=== PATIENT | male | born 1980 | race Caucasian/White ===

== ENCOUNTER 2017-08-04 06:20 | Emergency (ER) | payer SELFPAY ==
[~2017-08-04] VITALS: Ht 177.8 cm; Wt 98.6 kg
[~2017-08-04 06:20] MED LIST: ASPIRIN325 MG PO; ATENOLOL100 MG OR; BENAZEPRIL40 M1 OR; CLONIDINE0.1 MG PO; CLONIDINE0.3 MG OR; LORTAB5 OR; NO HOME MEDS
[2017-08-04] MEDS ORDERED: TRAMADOL HYDROC50 MG PO (07:29)
[2017-08-04] MEDS ORDERED: MOTRIN800 MG PO (07:29)
[2017-08-04 07:53] VITALS: BP 132/99
== END 2017-08-04 08:00 | disposition home or self-care (01) | DRG 948 ==
LOC: ED 06:20
DX: R60.0 Localized edema (principal); M25.571 Pain in right ankle and joints of right foot; Z87.312 Personal history of (healed) stress fracture

== ENCOUNTER 2018-09-17 18:17 | Emergency (ER) | payer SELFPAY ==
[~2018-09-17] VITALS: Ht 177.8 cm; Wt 101.0 kg
[~2018-09-17 18:17] MED LIST changes: +MOTRIN800 MG PO; +TRAMADOL HYDROC50 MG PO
[2018-09-17 19:28] LABS: HEMATOCRIT 52.7 % (39.0-50.0); HEMOGLOBIN 17.4 g/dl (14.0-18.0); IMMATURE GRANULOCYTES 0.2 % (0.0-5.0); MEAN CORPUSCULAR HGB 29.4 pG CALC (26.0-32.0); NEUT# 5.41 thou/uL (1.82-7.42); RED BLOOD COUNT 5.92 mill/uL (4.70-6.10); RED CELL DISTRI WIDTH 13.6 % (11.5-15.5)
[2018-09-17 19:44] LABS: ALBUMIN 4.4 g/dL (3.2-5.0); ALKALINE PHOSPHATASE 60 u/l (38-126); ANION GAP 15 (6-22 (CALC)); BILIRUBIN, TOTAL 0.6 mg/dL (0.0-1.4); BUN 20 mg/dL (9-20); BUN/CREATININE RATIO 19 (12-20 (CALC)); CARBON DIOXIDE 25 mmol/l (22-30); CHLORIDE 105 mmol/l (95-108); GFR > 60 ML/MIN (>=60 (CALC)); GFR FOR AFR.AMER. > 60 ML/MIN (>=60 (CALC)); POTASSIUM 4.2 mmol/l (3.5-5.1); SGOT/AST 19 u/l (17-59); SODIUM 141 mmol/l (137-146)
[2018-09-17 19:56] LABS: MYOGLOBIN 37 ng/mL (0 - 121)
[2018-09-17 20:08] LABS: URINE BILIRUBIN - DIPSTICK NEGATIVE (NEGATIVE); URINE BLOOD DIPSTICK NEGATIVE (NEGATIVE); URINE COLOR YELLOW; URINE GLUCOSE - DIPSTICK NEGATIVE (NEGATIVE); URINE KETONE NEGATIVE (NEGATIVE); URINE LEUK ESTERASE NEGATIVE (NEGATIVE); URINE NITRITE - DIPSTICK NEGATIVE (Negative); URINE PH 6.5 (4.5-8.0); URINE PROTEIN - DIPSTICK NEGATIVE (NEG-TRACE); URINE UROBILINOGEN - DIPSTICK 0.2 E.U./dL (0.2)
[2018-09-17 20:11] LABS: BARBITURATES NEGATIVE (NEGATIVE); COCAINE NEGATIVE (NEGATIVE); METHADONE NEGATIVE (NEGATIVE); TETRAHYDROCANNABIONOL NEGATIVE (NEGATIVE); TRICYLIC ANTIDEPRESSANTS NEGATIVE (NEGATIVE)
[2018-09-17 20:12] LABS: OXCYCODONE NEGATIVE (NEGATIVE)
[2018-09-17] MEDS ORDERED: ANTIVERT PO (20:34)
[2018-09-17 21:30] VITALS: BP 135/86
== END 2018-09-17 21:30 | disposition home or self-care (01) | DRG 149 ==
LOC: ED 18:17
PROVIDERS: Emergency Medicine
DX: R42 Dizziness and giddiness (principal); I10 Essential (primary) hypertension; M10.9 Gout, unspecified; F17.210 Nicotine dependence, cigarettes, uncomplicated